=== PATIENT | male | born 1965 | race American Indian/Alaskan Native ===

== ENCOUNTER 2017-11-05 19:18 | Emergency (ER) | payer OTHER ==
[2017-11-05] MEDS ORDERED: XYLOCAINE 0.5%/ EPI 1:200,000 INFILTRATI ONE (21:19)
[2017-11-05] MEDS ORDERED: AFRIN NS ONE (21:19)
[2017-11-05] MEDS ORDERED: XYLOCAINE 2%/ EPI 1:200,000 INFILTRATI ONE (21:28)
--- NOTE | 2017-11-05 22:02 | Emergency Department Report ---
HPI - General Chief Complaint: Nosebleed Time Seen by Provider: 11/05/17 20:19 - HPI HPI: The patient is a 52-year-old male who presents for evaluation of nose bleeding. The patient states that approximately 1-2 hours prior to arrival he developed sudden onset of severe bleeding from the left neck, constant since onset, improved with nasal bridge patient. He denies trauma to the nose, hematemesis, hemoptysis, hematuria, blood in the stool, easy bruising or bleeding, chest pain , dyspnea, abdominal pain. ED Past Medical Hx - Past Medical History Previous Medical History?: Yes Additional medical history: hyperlipidemia - Surgical History Past Surgical History?: No - Social History Smoking Status: Current Every Day Smoker Substance Use Type: Alcohol - Medications Home Medications: Home Medications Medication Instructions Recorded Confirmed Last Taken Type Acetaminophen/Codeine [Tylenol #3] 1 tab PO Q6H PRN #10 tab 11/06/17 Unknown Rx Sulfamethoxazole/Trimethoprim 1 each PO BID #14 tablet 11/06/17 Unknown Rx [Bactrim DS TAB] amLODIPine [Norvasc] 5 mg PO DAILY #31 tab 11/06/17 Unknown Rx ED Review of Systems ROS: Stated complaint: NOSE BLEED Other details as noted in HPI Constitutional: denies: fever ENT: reports epistaxis denies: throat or neck pain Respiratory: denies: cough, shortness of breath Cardiovascular: denies: chest pain Endocrine: denies unexplained weight loss or gain Gastrointestinal: denies: abdominal pain, nausea Genitourinary: denies: dysuria Musculoskeletal: denies: leg swelling Skin: denies: rash Neurological: denies: headache Hematological/Lymphatic: denies: easy bleeding or easy bruising Psych: denies sadness or hopelessness Physical Exam - Physical Exam Vital Signs: Vital Signs 11/05/17 11/05/17 20:01 20:47 Temperature 97.9 F Pulse Rate 106 H Respiratory 20 18 Rate Blood Pressure 137/101 O2 Sat by Pulse 98 98 Oximetry Physical Exam: General: well-nourished, well-developed, no acute distress Head: Normocephalic, atraumatic Eyes: normal sclera ENT: Mucous membranes are pink and moist, blood present to the left and right nare, no active bleeding Neck: trachea midline, neck supple, No neck stiffness, no cervical adenopathy Respiratory: Breath sounds equal bilaterally, no wheezing, rales, or rhonchi Cardio: S1 and S2 present, no murmurs, rubs, gallops, capillary refill is brisk Abdomen: Normoactive bowel sounds, soft abdomen, no rigidity, no guarding or rebound tenderness Musc: No pitting edema Skin: No rash Neuro: no facial drooping, normal speech Psych: Normal affect ED Course Vital Signs 11/05/17 11/05/17 20:01 20:47 Temperature 97.9 F Pulse Rate 106 H Respiratory 20 18 Rate Blood Pressure 137/101 O2 Sat by Pulse 98 98 Oximetry ED Medical Decision Making - Medical Decision Making The patient was seen and examined by myself. On initial evaluation, the patient was found to be in no distress. Evaluation orders were placed. Rapid Rhino was inserted into the left nare. The patient was monitored for greater than one hour without recurrence of bleeding. The patient was reevaluated and reported that their symptoms were markedly improved. The patient is stable for discharge with outpatient follow-up. The patient is given follow-up and return instructions. The patient expressed understanding and agreed with the plan. The patient is discharged in stable condition. Critical care attestation.: If time is entered above; I have spent that time in minutes in the direct care of this critically ill patient, excluding procedure time. ED Disposition Clinical Impression: Anterior epistaxis, Hypertensive urgency Disposition: DC-01 TO HOME OR SELFCARE Is pt being admited?: No Does the pt Need Aspirin: No Condition: Stable Instructions: Epistaxis (ED) Prescriptions: Sulfamethoxazole/Trimethoprim [Bactrim DS TAB] 1 each PO BID #14 tablet Referrals: IVETTE PEARL MD [Staff Physician] - 3-5 Days Forms: Work/School Release Form(ED) Time of Disposition: 04:06
[2017-11-06 02:10] VITALS: BP 138/98
[2017-11-06] MEDS ORDERED: CATAPRES PO ONE (04:15)
== END 2017-11-06 06:10 | disposition home or self-care (01) ==
LOC: ED 19:18
DX: R04.0 Epistaxis (principal); I16.0 Hypertensive urgency; F17.200 Nicotine dependence, unspecified, uncomplicated
CPT/HCPCS: 99283